=== PATIENT | female | born 1995 | race Hispanic/Latino ===

== ENCOUNTER 2019-02-25 19:51 | Emergency (ER) | payer OTHER ==
--- OUTSIDE RECORDS SUMMARY | 2019-02-25 19:53 | XMS REPORT ---
:1995 Author Organization [facility] Address [address] [place] [address] Dr. Abernathy [address] [place] [id number] Care Team Providers Name Role Phone Unavailable Unavailable Unavailable Problems This patient has no known problems. Allergies, Adverse Reactions, Alerts This patient has no known allergies or adverse reactions. Medications This patient has no known medications.
[2019-02-25 20:46] LABS: Absolute Lymphocytes (CBC) 1.3 K/uL (0.7-4.9); Absolute Monocytes 0.4 K/uL (0.1-1.3); Absolute Neutrophil 2.9 K/uL (1.8-8.0); Basophils % 0.5 % (0-1.3); Eosinophils % 0.8 % (0-4.4); Hematocrit 33.8 % (36.0-45.0); Lymphocytes % 27.8 % (15.3-44.8); MPV 8.5 fL (7.6-11.3); Monocytes % 8.2 % (3.3-12.3); RBC Red Blood Cell Count 4.66 M/uL (3.86-4.86)
[2019-02-25] MEDS ORDERED: NA CHLORIDE 0.9% 1,000 ML ONE (20:52)
[2019-02-25 20:54] LABS: ALT/SGPT 16 U/L (12-78); AST/SGOT 14 U/L (15-37); Albumin 3.3 g/dL (3.4-5.0); Alkaline Phosphatase 62 U/L (45-117); BUN Blood Urea Nitrogen 6 mg/dL (7-18); Bicarbonate 24 mmol/L (21-32); Bilirubin Direct < 0.1 mg/dL (0-0.2); Bilirubin Total 0.2 mg/dL (0.2-1.0); Glucose Level 83 mg/dL (74-106); Lipase 103 U/L (73-393); Potassium 3.5 mmol/L (3.5-5.1); Protein, Total 7.6 g/dL (6.4-8.2); Sodium Level 140 mmol/L (136-145)
[2019-02-25 21:07] LABS: Urine Bacteria 20-50 /HPF (<20); Urine RBC <5 /HPF (NONE SEEN)
[2019-02-25 21:08] LABS: Urine Culture Reflex Order REFLEXED; Urine Mucus LIGHT /HPF (NONE SEEN)
[2019-02-25 21:41] LABS: Platelet Estimate ADEQ; Urine White Blood Cell Casts OK
[2019-02-25 21:42] LABS: Blood Morphology Comment NOTED (NOT SEEN); Ovalocytes 1+
--- NOTE | 2019-02-25 22:01 | EDPHYS ---
Physician Documentation [facility] Name: Ignacia Rhodes Age: 23 yrs Sex: Female : 1995 Arrival Date: 02/25/2019 Time: 19:53 Bed 15 Private MD: ED Physician Sergio Hamilton HPI: 02/25 20:25 This 23 yrs old Female presents to ER via Ambulatory with complaints of Flank cp Pain - 15 Wks preg. 20:25 The patient presents with abdominal pain right lower quadrant. cp 20:25 Onset: The symptoms/episode began/occurred 3 day(s) ago. Associated signs and symptoms: cp Pertinent positives: nausea, vaginal discharge, vomiting, Pertinent negatives: diarrhea, dysuria, fever, vaginal bleeding. The symptoms are described as waxing/waning. Severity of pain: in the emergency department the pain is a 7 / 10. 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 - Social history:: Smoking status: Patient/guardian denies using tobacco, Patient/guardian denies using alcohol, street drugs. - Ebola Screening: : Patient negative for fever greater than or equal to 101.5 degrees Fahrenheit, and additional compatible Ebola Virus Disease symptoms Patient denies exposure to infectious person Patient denies travel to an Ebola-affected area in the 21 days before illness onset. ROS: 20:30 Constitutional: Negative for body aches, chills, fever, poor PO intake. cp 20:30 Eyes: Negative for injury, pain, redness, and discharge. cp 20:30 ENT: Negative for drainage from ear(s), ear pain, sore throat, difficulty swallowing, difficulty handling secretions. 20:30 Cardiovascular: Negative for chest pain, palpitations. 20:30 Respiratory: Negative for cough, shortness of breath, wheezing. 20:30 Abdomen/GI: Positive for abdominal pain, nausea, vomiting, of the right lower quadrant, Negative for diarrhea, constipation, anorexia. 20:30 Back: Negative for injury or acute deformity, decreased range of motion. 20:30 : Positive for urinary frequency, vaginal discharge, Negative for burning with urination, vaginal bleeding. 20:30 Skin: Negative for burn, rash. 20:30 Neuro: Negative for altered mental status, headache, weakness. 20:30 All other systems are negative. Exam: 20:35 Constitutional: The patient appears in no acute distress, alert, awake, comfortable, cp non-toxic, well developed, well nourished. 20:35 Head/Face: Normocephalic, atraumatic. cp 20:35 Eyes: Periorbital structures: appear normal, Conjunctiva: normal, no exudate, no injection, Sclera: no appreciated abnormality, Lids and lashes: appear normal, bilaterally. 20:35 ENT: External ear(s): are unremarkable, Nose: is normal, Mouth: Lips: moist, Oral mucosa: pink and intact, moist, Posterior pharynx: is normal, airway is patent, no erythema, no exudate. 20:35 Chest/axilla: Inspection: normal, Palpation: is normal, no crepitus, no tenderness. 20:35 Cardiovascular: Rate: normal, Rhythm: regular. 20:35 Respiratory: the patient does not display signs of respiratory distress, Respirations: normal, no use of accessory muscles, no retractions, no splinting, no tachypnea, labored breathing, is not present, Breath sounds: are clear throughout, no decreased breath sounds, no stridor, no wheezing. 20:35 Abdomen/GI: Inspection: gravid appearance, is noted, Bowel sounds: active, all quadrants, Palpation: soft, in all quadrants, mild abdominal tenderness, in the right lower quadrant, rebound tenderness, is not appreciated, involuntary guarding, is not appreciated. 20:35 Back: CVA tenderness, is absent. 20:35 Skin: cellulitis, is not appreciated, no rash present. 20:35 Special observations: complaints out of proportion to exam, no evidence of discomfort. Vital Signs: 20:05 BP 128 / 79; Pulse 89; Resp 16; Temp 98.7; Pulse Ox 100% ; Weight 61.23 kg; Height 5 rr5 ft. 4 in. (162.56 cm); Pain 7/10; 21:00 BP 110 / 75; Pulse 85; Resp 17; Pulse Ox 98% ; rr5 22:00 BP 129 / 86; Pulse 92; Resp 16; Pulse Ox 99% ; rr5 22:30 BP 121 / 85; Pulse 90; Resp 16; Pulse Ox 99% ; rr5 20:05 Body Mass Index 23.17 (61.23 kg, 162.56 cm) rr5 MDM: 20:04 Patient medically screened. cp 20:30 Differential diagnosis: nephrolithiasis, pyelonephritis, UTI, appendicitis, ovarian cp cyst, non-specific abdominal pain, PID, ovarian torsion. 22:00 Data reviewed: vital signs, nurses notes, lab test result(s), radiologic studies, cp ultrasound. 22:00 Counseling: I had a detailed discussion with the patient and/or guardian regarding: the cp historical points, exam findings, and any diagnostic results supporting the discharge/admit diagnosis, lab results, radiology results, the need for outpatient follow up, an OB/Gyne specialist, to return to the emergency department if symptoms worsen or persist or if there are any questions or concerns that arise at home. Response to treatment: the patient's symptoms have markedly improved after treatment, and as a result, I will discharge patient. Special discussion: Based on the patient's Hx, exam, and Dx evaluation, there is no indication for emergent surgery or inpatient Tx. It is understood by the patient/guardian that if the Sx's persist or worsen they need to return immediately for re-evaluation. 02/25 20:20 Order name: Basic Metabolic Panel; Complete Time: 21:04 02/25 21:05 Interpretation: Normal except: CL 108; BUN 6; CRE 0.47. 02/25 20:20 Order name: CBC with Diff; Complete Time: 21:53 02/25 21:04 Interpretation: Normal except: HGB 10.9; HCT 33.8; MCV 72.5; MCH 23.4; RDW 19.2. 02/25 20:20 Order name: Creatinine for Radiology; Complete Time: 21:04 02/25 21:54 Interpretation: Reviewed. 02/25 20:20 Order name: Hepatic Function; Complete Time: 21:04 02/25 21:05 Interpretation: Normal except: AST 14; ALB 3.3; GLOB 4.3; A/G 0.8. 02/25 20:20 Order name: Lipase; Complete Time: 21:04 cp 02/25 20:20 Order name: Urine Microscopic Only; Complete Time: 21:53 cp 02/25 21:54 Interpretation: Normal except: UBACT 20-50. cp 02/25 20:20 Order name: IV Saline Lock; Complete Time: 20:36 cp 02/25 20:48 Order name: CBC Smear Scan; Complete Time: 21:53 EDNJ 02/25 21:09 Order name: Urine Culture [facility] 02/25 21:12 Order name: Urine Dipstick--Ancillary (enter results) [facility] 02/25 21:13 Order name: Urine --Ancillary (enter results) [facility] 02/25 21:45 Order name: OB Limited [facility] 02/25 20:20 Order name: Labs collected and sent; Complete Time: 20:36 cp 02/25 20:20 Order name: Urine Dipstick-Ancillary (obtain specimen); Complete Time: 20:35 cp 02/25 21:55 Order name: PO challenge; Complete Time: 22:06 cp Administered Medications: 20:45 Drug: NS 0.9% 500 ml Route: IV; Rate: bolus; Site: right antecubital; rr5 22:00 Follow up: Response: No adverse reaction; IV Status: Completed infusion; IV Intake: rr5 500ml Disposition: 02/25/19 22:00 Discharged to Home. Impression: related conditions, unspecified, second trimester, Unspecified genitourinary tract infection in . - Condition is Stable. - Discharge Instructions: Abdominal Pain During , and Urinary Tract Infection. - Prescriptions for Macrobid 100 mg Oral Capsule - take 1 capsule by ORAL route every 12 hours for 7 days; 14 capsule. promethazine 25 mg Oral Tablet - take 1 tablet by ORAL route every 6 hours As needed; 20 tablet. - Medication Reconciliation Form, Thank You Letter, Antibiotic Education, Prescription Opioid Use form. - Follow up: Private Physician; When: 2 - 3 days; Reason: Recheck today's complaints. - Problem is new. - Symptoms have improved. Addendum: 02/27/2019 00:14 Co-signature as Attending Physician, Sergio valdovinos Signatures: Dispatcher [facility] Sergio Hamilton MD MD pkl Prem Ramirez PA PA cp Roque, Raymond, RN RN rr5 Corrections: (The following items were deleted from the chart) 02/25 21:45 20:25 Transvaginal Ob+US.USHA.SUMIT ordered. EDMS EDMS 22:52 22:00 02/25/2019 22:00 Discharged to Home. Impression: related conditions, rr5 unspecified, second trimester; Unspecified genitourinary tract infection in . Condition is Stable. Forms are Medication Reconciliation Form, Thank You Letter, Antibiotic Education, Prescription Opioid Use. Follow up: Private Physician; When: 2 - 3 days; Reason: Recheck today's complaints. Problem is new. Symptoms have improved. cp
--- NOTE | 2019-02-25 22:01 | ER ---
Nurse's Notes [facility] Name: Ignacia Rhodes Age: 23 yrs Sex: Female : 1995 Arrival Date: 02/25/2019 Time: 19:53 Bed 15 Private MD: Diagnosis: related conditions, unspecified, second trimester;Unspecified genitourinary tract infection in Presentation: 02/25 20:05 Presenting complaint: Patient states: started to have this sharp pain at my right lower rr5 abdomen 7/10 pain score, I'm nauseated and vomited once. having some whitish vaginal discharge. 20:05 Transition of care: patient was not received from another setting of care. Onset of rr5 symptoms was February 23, 2019. Risk Assessment: Do you want to hurt yourself or someone else? Patient reports no desire to harm self or others. Initial Sepsis Screen: Does the patient meet any 2 criteria? No. Patient's initial sepsis screen is negative. Does the patient have a suspected source of infection? No. Patient's initial sepsis screen is negative. Care prior to arrival: Medication(s) given: Tylenol. 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 - Social history:: Smoking status: Patient/guardian denies using tobacco, Patient/guardian denies using alcohol, street drugs. - Ebola Screening: : Patient negative for fever greater than or equal to 101.5 degrees Fahrenheit, and additional compatible Ebola Virus Disease symptoms Patient denies exposure to infectious person Patient denies travel to an Ebola-affected area in the 21 days before illness onset. Screenin:48 Abuse screen: Denies threats or abuse. Denies injuries from another. Nutritional rr5 screening: No deficits noted. Tuberculosis screening: No symptoms or risk factors identified. Fall Risk IV access (20 points). Total Aden Fall Scale indicates No Risk (0-24 pts). Assessment: 20:05 General: Appears in no apparent distress. comfortable, Behavior is calm, cooperative, rr5 appropriate for age. Pain: Complains of pain in right lower quadrant Pain does not radiate. Pain currently is 7 out of 10 on a pain scale. Quality of pain is described as sharp, Pain began gradually, Is intermittent. Neuro: Level of Consciousness is awake, alert, obeys commands, Oriented to person, place, time, situation, Appropriate for age. Cardiovascular: Capillary refill < 3 seconds Patient's skin is warm and dry. Respiratory: Airway is patent Respiratory effort is even, unlabored, Respiratory pattern is regular, symmetrical. GI: Abdomen is round Reports lower abdominal pain, nausea, vomiting. : Urine is clear, Reports discharge, from vagina that is white, 15 weeks . 20:05 EENT: No signs and/or symptoms were reported regarding the EENT system. Derm: Skin is rr5 intact, Skin temperature is warm. Musculoskeletal: Capillary refill < 3 seconds, Range of motion: intact in all extremities. 21:51 Reassessment: Patient appears in no apparent distress at this time. No changes from rr5 previously documented assessment. Patient is alert, oriented x 3, equal unlabored respirations, skin warm/dry/pink. awaiting for ultrasound result. no complaints made. Patient states symptoms have improved. 22:30 Reassessment: Patient appears in no apparent distress at this time. Patient is alert, rr5 oriented x 3, equal unlabored respirations, skin warm/dry/pink. discharge instruction given and explained without complaints made. Patient states feeling better. Patient states symptoms have improved. Vital Signs: 20:05 BP 128 / 79; Pulse 89; Resp 16; Temp 98.7; Pulse Ox 100% ; Weight 61.23 kg; Height 5 rr5 ft. 4 in. (162.56 cm); Pain 7/10; 21:00 BP 110 / 75; Pulse 85; Resp 17; Pulse Ox 98% ; rr5 22:00 BP 129 / 86; Pulse 92; Resp 16; Pulse Ox 99% ; rr5 22:30 BP 121 / 85; Pulse 90; Resp 16; Pulse Ox 99% ; rr5 20:05 Body Mass Index 23.17 (61.23 kg, 162.56 cm) rr5 ED Course: 19:53 Patient arrived in ED. am2 20:04 Prem Ramirez PA is PHCP. cp 20:04 Sergio Hamilton MD is Attending Physician. cp 20:05 Patient has correct armband on for positive identification. Bed in low position. Side rr5 rails up X2. Pulse ox on. NIBP on. 20:05 Arm band placed on. rr5 20:07 Noah Branham, RN is Primary Nurse. rr5 20:10 Triage completed. rr5 20:30 Inserted saline lock: 20 gauge in right antecubital area, using aseptic technique. jd3 Blood collected. 21:46 OB Limited In Process Unspecified. EDMS 22:40 No provider procedures requiring assistance completed. IV discontinued, intact, rr5 bleeding controlled, No redness/swelling at site. Pressure dressing applied. Administered Medications: 20:45 Drug: NS 0.9% 500 ml Route: IV; Rate: bolus; Site: right antecubital; rr5 22:00 Follow up: Response: No adverse reaction; IV Status: Completed infusion; IV Intake: rr5 500ml Intake: 22:00 IV: 500ml; Total: 500ml. rr5 Outcome: 22:00 Discharge ordered by MD. cp 22:40 Discharged to home ambulatory. rr5 22:40 Condition: stable 22:40 Discharge instructions given to patient, Instructed on discharge instructions, follow up and referral plans. medication usage, Demonstrated understanding of instructions, follow-up care, medications, Prescriptions given X 2. 22:52 Patient left the ED. rr5 Signatures: Dispatcher [employer] EDNC Prem Ramirez PA PA Shreya Marquez am2 Jae Enciso RN RN jNoah Ortiz, GLORIA RN rr5
[2019-02-25 23:09] VITALS: TEMP 98.7
[2019-02-25 23:12] VITALS: BP 129/86; O2SAT 99
[2019-02-26 01:10] LABS: Urine Specific Gravity 1.025 (1.005-1.030)
[2019-02-26 01:11] LABS: Urine Specific Gravity 1.025 (1.005-1.030)
[2019-02-26 01:12] LABS: Urine Blood NEGATIVE (NEG); Urine Glucose NEGATIVE (NEG); Urine Protein TRACE (NEG); Urine pH 7.5 (5.0-7.0)
--- NOTE | 2019-02-26 08:36 | RAD REPORT ---
EXAM DESCRIPTION: US - OB Limited - 02/25/2019 9:45 pm CLINICAL HISTORY: , pelvic pain Preliminary findings provided at the time of the study. COMPARISON: None. FINDINGS: A single gestation is identified. Heart rate normal. The intracranial contents and s pine are grossly normal. Anatomic assessment is limited at 15 weeks gestational age. Anatomy is as ex pected for this gestational age. measurements are as follows: BPD:3.18 Centimeters 16 weeks 0 days HC:12.33 Centimeters 16 weeks 1 day AC:9.95 Centimeters 16 weeks 0 days HL:1.79 Centimeters 15 weeks 1 day FL:1.93 Centimeters 15 weeks 5 days The estimated gestational age (EGA) is 15 weeks 6 days with an SHIV of 08/13/2019. ratios are n ormal or within acceptable limits. The placenta is grade 0, posterior fundal in location. No low-lyin g or placenta previa. The amniotic fluid volume is normal. No maternal adnexal abnormality. IMPRESSION: 1. Single gestation with an EGA of 15 weeks 6 days and an SHIV of the 08/13/2019. 2. Anatomy is as expected for 15 week age. ratios are normal or within acceptable limits. 3. Grade 0, posterior fundal placenta with no low-lying or placenta previa. 4. Amniotic fluid volume is normal.
== END 2019-02-25 22:52 | disposition home or self-care (01) ==
LOC: ER 19:51
DX: O23.92 Unspecified genitourinary tract infection in pregnancy, second trimester (principal); O99.012 Anemia complicating pregnancy, second trimester; Z3A.15 15 weeks gestation of pregnancy
CPT/HCPCS: 36415; 76815; 80048; 80076; 81003; 81015; 81025; 83690; 85025; 87086; 87088; 96360; 99284; J7030

== ENCOUNTER 2019-05-17 21:46 | Emergency (ER) | payer OTHER ==
--- OUTSIDE RECORDS SUMMARY | 2019-05-17 21:48 | XMS REPORT ---
:1995 [facility] Address [address] [place] [address] Dr. Abernathy [address] [place] [id number] Care Team Providers Name Role Phone Unavailable Unavailable Unavailable Problems This patient has no known problems. Allergies, Adverse Reactions, Alerts This patient has no known allergies or adverse reactions. Medications This patient has no known medications.
[2019-05-17] MEDS ORDERED: NA CHLORIDE 0.9% 1,000 ML ONE (23:45)
[2019-05-17 23:51] LABS: Absolute Lymphocytes (CBC) 0.5 K/uL (0.7-4.9); Hematocrit 28.9 % (36.0-45.0); Lymphocytes % 6.7 % (15.3-44.8); MPV 8.6 fL (7.6-11.3); Monocytes % 1.9 % (3.3-12.3); RBC Red Blood Cell Count 4.24 M/uL (3.86-4.86)
[2019-05-18 00:06] LABS: ALT/SGPT 14 U/L (12-78); AST/SGOT 18 U/L (15-37); Albumin 2.8 g/dL (3.4-5.0); Alkaline Phosphatase 97 U/L (45-117); BUN Blood Urea Nitrogen 6 mg/dL (7-18); Bicarbonate 22 mmol/L (21-32); Bilirubin Direct 0.1 mg/dL (0-0.2); Bilirubin Total 0.5 mg/dL (0.2-1.0); Glucose Level 95 mg/dL (74-106); Lipase 101 U/L (73-393); Potassium 3.2 mmol/L (3.5-5.1); Protein, Total 7.3 g/dL (6.4-8.2); Sodium Level 136 mmol/L (136-145)
--- NOTE | 2019-05-18 00:36 | ER ---
Nurse's Notes [facility] Name: Ignacia Rhodes Age: 24 yrs Sex: Female : 1995 Arrival Date: 05/17/2019 Time: 21:52 Bed 8 Private MD: Diagnosis: Vomiting;Diarrhea, unspecified; related conditions, unspecified, second trimester; related conditions, unspecified, third trimester;Urinary tract infection, site not specified;Anemia, unspecified Presentation: 05/17 21:55 Presenting complaint: Pt sent to [facility] for evaluation due to her being 27+ weeks . 23:05 Presenting complaint: Kathi CASTRO from [facility] called to state that pt was coming back to ER for evaluation. They examined her and she had no contractions and heart tones were 160. Pt is 27 weeks 1 day. 23:20 Presenting complaint: Patient states: that since this am she has been having abd pain fc (all over), nausea, vomiting and diarrhea. Goes to [facility] in [place] for her care but has not called them yet to notify them of how she is doing. Transition of care: patient was not received from another setting of care. Onset of symptoms was May 17, 2019. Risk Assessment: Do you want to hurt yourself or someone else? Patient reports no desire to harm self or others. Initial Sepsis Screen: Does the patient meet any 2 criteria? HR > 90 bpm. Yes Does the patient have a suspected source of infection? No. Patient's initial sepsis screen is negative. Care prior to arrival: None. 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 - Social history:: Smoking status: Patient/guardian denies using tobacco, Patient/guardian denies using alcohol, street drugs. - Ebola Screening: : Patient negative for fever greater than or equal to 101.5 degrees Fahrenheit, and additional compatible Ebola Virus Disease symptoms Patient denies exposure to infectious person Patient denies travel to an Ebola-affected area in the 21 days before illness onset. - Family history:: not pertinent. Screenin:20 Abuse screen: Denies threats or abuse. Nutritional screening: No deficits noted. fc Tuberculosis screening: No symptoms or risk factors identified. Fall Risk None identified. Assessment: 23:30 General: Appears in no apparent distress. Behavior is calm, cooperative. Pain: bb Complains of pain in abdomen. Neuro: Level of Consciousness is awake, alert, obeys commands, Oriented to person, place, time, situation. Cardiovascular: Heart tones S1 S2 present. Respiratory: Airway is patent Respiratory effort is even, unlabored, Respiratory pattern is regular, Breath sounds are clear bilaterally. GI: Abdomen is round Bowel sounds present X 4 quads. Abd is soft X 4 quads. Derm: Skin is pink, warm \T\ dry. Musculoskeletal: Circulation, motion, and sensation intact. 05/18 00:09 Reassessment: pt resting quietly, IV site intact, patent, with fluids infusing awaiting bb diagnostic results. 00:49 Reassessment: Patient is alert, oriented x 3, equal unlabored respirations, skin bb warm/dry/pink. pt awaiting antibiotic reaction time verbalized understanding of and agrees to plan of care discharge instructions given. Vital Signs: 05/17 23:20 BP 116 / 69; Pulse 92; Resp 18; Temp 98.8(O); Pulse Ox 100% on R/A; Weight 67.13 kg (R); Height 5 ft. 4 in. (162.56 cm) (R); Pain 8/10; 05/18 00:31 BP 106 / 64 Supine; Pulse 85; Pulse Ox 100% on R/A; oe 00:33 BP 111 / 70 Sitting; Pulse 93; Pulse Ox 100% on R/A; oe 00:35 BP 120 / 59 Standing; Pulse 93; Pulse Ox 100% on R/A; oe 00:48 Resp 16 S; Temp 98.3(O); Pulse Ox 98% on R/A; bb 05/17 23:20 Body Mass Index 25.40 (67.13 kg, 162.56 cm) ED Course: 05/17 21:52 Patient arrived in ED. es 23:20 Arm band placed on Patient placed in an exam room, on a stretcher. fc 23:20 Patient has correct armband on for positive identification. Placed in gown. Bed in low fc position. Call light in reach. Side rails up X2. Pulse ox on. NIBP on. 23:21 Prem Ty MD is Attending Physician. [facility] 23:28 Triage completed. 23:30 Initial lab(s) drawn, by sd, sent to lab. Urine collected: clean catch specimen. bb Inserted saline lock: 20 gauge in right antecubital area, using aseptic technique. Blood collected. 23:32 Naty Lindsay, RN is Primary Nurse. bb 05/18 00:49 No provider procedures requiring assistance completed. bb 01:00 IV discontinued, intact, bleeding controlled, No redness/swelling at site. Pressure bb dressing applied. Administered Medications: 05/17 23:33 Drug: NS 0.9% 1000 ml Route: IV; Rate: 1 bolus; Site: right antecubital; bb 05/18 00:30 Follow up: IV Status: Completed infusion; IV Intake: 1000ml bb 00:48 Drug: Potassium Effervescent Tablet 25 mEq Route: PO; bb 01:00 Follow up: Response: No adverse reaction bb 00:48 Drug: Rocephin - (cefTRIAXone) 1 grams Route: IVPB; Infused Over: 30 mins; Site: right bb antecubital; 00:53 Follow up: IV Status: Completed infusion; IV Intake: 10ml ; given per pharmacy protocol bb Intake: 00:30 IV: 1000ml; Total: 1000ml. bb 00:53 IV: 10ml; Total: 1010ml. bb Outcome: 00:34 Discharge ordered by . [facility] 00:49 Discharged to home ambulatory, with family. bb 00:49 Condition: stable 00:49 Discharge instructions given to patient, Instructed on discharge instructions, follow up and referral plans. medication usage, Demonstrated understanding of instructions, follow-up care, medications, Prescriptions given X 3. 01:02 Patient left the ED. bb Signatures: Prem Ty MD MD cha Salyer, Edna es Chretien, Felicia, RN RN Naty Lindsay RN RN Allen Prado Corrections: (The following items were deleted from the chart) 00:38 00:31 BP 106 / 64; Pulse 85bpm; Pulse Ox 100% RA; oe oe
--- NOTE | 2019-05-18 00:36 | EDPHYS ---
Physician Documentation [facility] Name: Ignacia Rhodes Age: 24 yrs Sex: Female : 1995 Arrival Date: 05/17/2019 Time: 21:52 Bed 8 Private MD: ED Physician Prem Ty HPI: 05/18 00:30 This 24 yrs old Female presents to ER via Wheelchair with complaints of jyoti Abdominal Pain. 00:30 The patient presents with abdominal pain. Onset: The symptoms/episode began/occurred 2 jyoti day(s) ago. The patient presents to the emergency department with nausea, vomiting, diarrhea. Onset: The symptoms/episode began/occurred 2 day(s) ago. Possible causes: unknown. The symptoms are aggravated by nothing. The symptoms are alleviated by nothing. Onset: The symptoms/episode began/occurred 2 day(s) ago. Associated signs and symptoms: The patient has no apparent associated signs or symptoms. Severity of symptoms: At their worst the symptoms were mild, in the emergency department the symptoms are unchanged. 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 - Social history:: Smoking status: Patient/guardian denies using tobacco, Patient/guardian denies using alcohol, street drugs. - Ebola Screening: : Patient negative for fever greater than or equal to 101.5 degrees Fahrenheit, and additional compatible Ebola Virus Disease symptoms Patient denies exposure to infectious person Patient denies travel to an Ebola-affected area in the 21 days before illness onset. - Family history:: not pertinent. ROS: 05/18 00:30 Constitutional: Negative for fever, chills, and weight loss, Eyes: Negative for injury, jyoti pain, redness, and discharge, ENT: Negative for injury, pain, and discharge, Neck: Negative for injury, pain, and swelling, Cardiovascular: Negative for chest pain, palpitations, and edema, Respiratory: Negative for shortness of breath, cough, wheezing, and pleuritic chest pain, Back: Negative for injury and pain, : Negative for injury, bleeding, discharge, and swelling, MS/Extremity: Negative for injury and deformity, Skin: Negative for injury, rash, and discoloration, Neuro: Negative for headache, weakness, numbness, tingling, and seizure, Psych: Negative for depression, anxiety, suicide ideation, homicidal ideation, and hallucinations, Allergy/Immunology: Negative for hives, rash, and allergies, Endocrine: Negative for neck swelling, polydipsia, polyuria, polyphagia, and marked weight changes, Hematologic/Lymphatic: Negative for swollen nodes, abnormal bleeding, and unusual bruising. Abdomen/GI: Positive for abdominal pain, nausea, vomiting, and diarrhea, nausea, vomiting, diarrhea, abdominal distension, of the right upper quadrant, left upper quadrant, right lower quadrant and left lower quadrant, no ctx, no lof, no vag bleeding. 00:30 Abdomen/GI: Positive for positive fm. jyoti Exam: 00:30 Constitutional: This is a well developed, well nourished patient who is awake, alert, jyoti and in no acute distress. Head/Face: Normocephalic, atraumatic. Eyes: Pupils equal round and reactive to light, extra-ocular motions intact. Lids and lashes normal. Conjunctiva and sclera are non-icteric and not injected. Cornea within normal limits. Periorbital areas with no swelling, redness, or edema. ENT: Nares patent. No nasal discharge, no septal abnormalities noted. Tympanic membranes are normal and external auditory canals are clear. Oropharynx with no redness, swelling, or masses, exudates, or evidence of obstruction, uvula midline. Mucous membranes moist. Neck: Trachea midline, no thyromegaly or masses palpated, and no cervical lymphadenopathy. Supple, full range of motion without nuchal rigidity, or vertebral point tenderness. No Meningismus. Chest/axilla: Normal chest wall appearance and motion. Nontender with no deformity. No lesions are appreciated. Cardiovascular: Regular rate and rhythm with a normal S1 and S2. No gallops, murmurs, or rubs. Normal PMI, no JVD. No pulse deficits. Respiratory: Lungs have equal breath sounds bilaterally, clear to auscultation and percussion. No rales, rhonchi or wheezes noted. No increased work of breathing, no retractions or nasal flaring. Back: No spinal tenderness. No costovertebral tenderness. Full range of motion. Female : Normal external genitalia. Skin: Warm, dry with normal turgor. Normal color with no rashes, no lesions, and no evidence of cellulitis. MS/ Extremity: Pulses equal, no cyanosis. Neurovascular intact. Full, normal range of motion. Neuro: Awake and alert, GCS 15, oriented to person, place, time, and situation. Cranial nerves II-XII grossly intact. Motor strength 5/5 in all extremities. Sensory grossly intact. Cerebellar exam normal. Normal gait. Psych: Awake, alert, with orientation to person, place and time. Behavior, mood, and affect are within normal limits. 00:30 Abdomen/GI: Inspection: gravid appearance, Bowel sounds: normal, Palpation: abdomen is soft and non-tender, Liver: no appreciated palpable abnormalities, Hernia: not appreciated. Vital Signs: 05/17 23:20 BP 116 / 69; Pulse 92; Resp 18; Temp 98.8(O); Pulse Ox 100% on R/A; Weight 67.13 kg fc (R); Height 5 ft. 4 in. (162.56 cm) (R); Pain 8/10; 05/18 00:31 BP 106 / 64 Supine; Pulse 85; Pulse Ox 100% on R/A; oe 00:33 BP 111 / 70 Sitting; Pulse 93; Pulse Ox 100% on R/A; oe 00:35 BP 120 / 59 Standing; Pulse 93; Pulse Ox 100% on R/A; oe 00:48 Resp 16 S; Temp 98.3(O); Pulse Ox 98% on R/A; bb 05/17 23:20 Body Mass Index 25.40 (67.13 kg, 162.56 cm) fc MDM: 05/17 23:21 Patient medically screened. [facility] 05/18 00:43 Data reviewed: vital signs, nurses notes, lab test result(s). [facility] 05/17 23:21 Order name: Basic Metabolic Panel [facility] 05/17 23:21 Order name: CBC with Diff [facility] 05/17 23:21 Order name: Creatinine for Radiology [facility] 05/17 23:21 Order name: Hepatic Function [facility] 05/17 23:21 Order name: Lipase [facility] 05/17 23:21 Order name: Fecal Leukocyte Stain [facility] 05/17 23:21 Order name: Stool Culture [facility] 05/17 23:24 Order name: Basic Metabolic Panel; Complete Time: 00:28 [facility] 05/17 23:24 Order name: CBC with Automated Diff [facility] 05/17 23:24 Order name: Creatinine (Radiology Only); Complete Time: 00:28 [facility] 05/17 23:24 Order name: Liver (Hepatic) Function; Complete Time: 00:28 [facility] 05/17 23:24 Order name: Lipase; Complete Time: 00:28 [facility] 05/17 23:57 Order name: Manual Differential [facility] 05/17 23:21 Order name: IV Saline Lock; Complete Time: 23:35 [facility] 05/17 23:21 Order name: Labs collected and sent; Complete Time: 23:35 [facility] 05/17 23:21 Order name: Urine Dipstick-Ancillary (obtain specimen); Complete Time: 23:36 [facility] 05/18 00:21 Order name: Urine Dipstick--Ancillary (enter results) ar5 05/18 00:27 Order name: Orthostatics; Complete Time: 00:57 [facility] Administered Medications: 05/17 23:33 Drug: NS 0.9% 1000 ml Route: IV; Rate: 1 bolus; Site: right antecubital; 05/18 00:30 Follow up: IV Status: Completed infusion; IV Intake: 1000ml 00:48 Drug: Potassium Effervescent Tablet 25 mEq Route: PO; 01:00 Follow up: Response: No adverse reaction 00:48 Drug: Rocephin - (cefTRIAXone) 1 grams Route: IVPB; Infused Over: 30 mins; Site: right bb antecubital; 00:53 Follow up: IV Status: Completed infusion; IV Intake: 10ml ; given per pharmacy protocol Disposition: 05/18/19 00:34 Discharged to Home. Impression: Vomiting, Diarrhea, unspecified, related conditions, unspecified, second trimester, related conditions, unspecified, third trimester, Urinary tract infection, site not specified, Anemia, unspecified. - Condition is Stable. - Discharge Instructions: Abdominal Pain During , Food Choices to Help Relieve Diarrhea, Adult, Diarrhea, Adult, Nausea and Vomiting, Adult, Urinary Tract Infection, Adult, Nausea and Vomiting, Adult, [id number]-Jcdo, Urinary Tract Infection, Adult, Lqut-en-Taht, Diarrhea, Adult, Mehe-ow-Gfox, Third Trimester of , Xllu-op-Stej, Abdominal Pain During , Jurz-yw-Irsp, Second Trimester of , Acjm-ps-Ajpi, Hypokalemia. - Prescriptions for Vitamin 27- 0.8 mg Oral Tablet - take 1 tablet by ORAL route once daily; 30 tablet. Macrobid 100 mg Oral Capsule - take 1 capsule by ORAL route every 12 hours for 5 days; 10 capsule. Zofran 4 mg Oral Tablet - take 1 tablet by ORAL route every 12 hours As needed; 10 tablet. - Medication Reconciliation Form, Thank You Letter, Antibiotic Education, Prescription Opioid Use form. - Follow up: Private Physician; When: 2 - 3 days; Reason: Recheck today's complaints, Continuance of care, Re-evaluation by your physician. - Problem is new. - Symptoms have improved. Signatures: Dispatcher [employer] EDVT Prem Ty MD MD cha Chretien, Felicia, RN RN fc Ballard, Brenda, RN RN bb Corrections: (The following items were deleted from the chart) 00:35 00:34 05/18/2019 00:34 Discharged to Home. Impression: Vomiting; Diarrhea, unspecified; jyoti related conditions, unspecified, second trimester; related conditions, unspecified, third trimester; Urinary tract infection, site not specified. Condition is Stable. Forms are Medication Reconciliation Form, Thank You Letter, Antibiotic Education, Prescription Opioid Use. Follow up: Private Physician; When: 2 - 3 days; Reason: Recheck today's complaints, Continuance of care, Re-evaluation by your physician. Problem is new. Symptoms have improved. jyoti 01:02 00:35 05/18/2019 00:34 Discharged to Home. Impression: Vomiting; Diarrhea, unspecified; bb related conditions, unspecified, second trimester; related conditions, unspecified, third trimester; Urinary tract infection, site not specified; Anemia, unspecified. Condition is Stable. Forms are Medication Reconciliation Form, Thank You Letter, Antibiotic Education, Prescription Opioid Use. Follow up: Private Physician; When: 2 - 3 days; Reason: Recheck today's complaints, Continuance of care, Re-evaluation by your physician. Problem is new. Symptoms have improved. jyoti
[2019-05-18] MEDS ORDERED: CEFTRIAXONE/SWI 1gm 1 GM/10 ML SYR ONE (00:57)
[2019-05-18] MEDS ORDERED: POTASSIUM 25 MEQ EFFERV TAB ONE (00:57)
[2019-05-18 01:00] LABS: Blood Morphology Comment NOTED (NOT SEEN); Hypochromasia 1+; Platelet Estimate ADEQ
[2019-05-18 01:09] LABS: Urine Blood NEGATIVE (NEG); Urine Glucose NEGATIVE (NEG); Urine Protein TRACE (NEG)
[2019-05-18 02:40] VITALS: BP 120/59
[2019-05-18 02:46] VITALS: TEMP 98.3; O2SAT 98
== END 2019-05-18 01:02 | disposition home or self-care (01) ==
LOC: ER 21:46
DX: O23.42 Unspecified infection of urinary tract in pregnancy, second trimester (principal); O99.012 Anemia complicating pregnancy, second trimester; R19.7 Diarrhea, unspecified; Z3A.27 27 weeks gestation of pregnancy
CPT/HCPCS: 36415; 80048; 80076; 81003; 83690; 85025; 96361; 96374; 99284; J0696; J7030

== ENCOUNTER 2024-04-11 10:46 | Emergency (ER) | payer SELFPAY ==
[2024-04-11 11:28] LABS: Absolute Basophils 0.1 K/uL (0-0.5); Absolute Eosinophils 0.1 K/uL (0-0.5); Absolute Lymphocytes (CBC) 1.4 K/uL (0.7-4.9); Absolute Monocytes 0.3 K/uL (0.1-1.3); Absolute Neutrophil 2.8 K/uL (1.8-8.0); Basophils % 1.1 % (0-1.3); Eosinophils % 1.9 % (0-4.4); Hematocrit 32.5 % (36.0-45.0); Hemoglobin 10.1 g/dL (12.0-15.0); Lymphocytes % 30.6 % (15.3-44.8); MCH 21.1 pg (27.0-35.0); MCHC 31.2 g/dL (32.0-36.0); MCV 67.6 fL (80-100); MPV 8.1 fL (7.6-11.3); Monocytes % 6.4 % (3.3-12.3); Platelets 474 thou/uL (152-406); Red Cell Distribution Width 17.9 % (12.1-15.2)
[2024-04-11 11:32] LABS: Specific Gravity 1.022 (1.005-1.030); Sqamous Epithelial <5 /HPF (None Seen); Urine Bacteria None Seen /HPF (<20); Urine Bilirubin NEGATIVE (Negative); Urine Blood 3+ (OVER) (Negative); Urine Clarity Extremely Turbid (Clear); Urine Color Light-Orange (Yellow); Urine Culture Reflex Order NOT NEEDED; Urine Glucose NEGATIVE (Negative); Urine Ketones NEGATIVE (Negative); Urine Microscopic Reflex YN ORDER UMIC; Urine Mucus 2+ /HPF (None Seen); Urine Nitrite NEGATIVE (Negative); Urine Protein TRACE (Negative); Urine RBC >50 /HPF (None Seen); Urine Urobilinogen Normal (Normal); Urine WBC None Seen /HPF (<5); Urine pH 5.5 (5.0-7.0)
[2024-04-11 11:43] LABS: Albumin 3.9 g/dL (3.4-5.0); Albumin/Globulin Ratio 0.8 (1.1-1.8); Anion Gap 7.5 mEq/L (5.0-15.0); Bilirubin Total 0.4 mg/dL (0.2-1.0); Globulin 4.6 g/dL (2.3-3.5); Potassium 3.5 mEq/L (3.5-5.1); Protein, Total 8.5 g/dL (6.4-8.2)
[2024-04-11 12:06] LABS: Blood Morphology Comment NOTED (NOT SEEN); Hypochromasia 1+; Microcytosis 1+; Platelet Estimate INCR; White Blood Cell Scan OK (OK)
--- NOTE | 2024-04-11 12:18 | RAD REPORT ---
EXAM DESCRIPTION: CT - Abdomen Pelvis W Contrast - 04/11/2024 12:00 pm CLINICAL HISTORY: Abdominal pain COMPARISON: none. TECHNIQUE: Computed axial tomography of the abdomen pelvis was obtained. 100 cc Isovue-300 was admin istered intravenously. Oral contrast was not requested which limits evaluation of bowel and appendix All CT scans are performed using dose optimization technique as appropriate and may include automated exposure control or mA/KV adjustment according to patient size. FINDINGS: Mild fatty infiltration of the liver. Cholecystectomy The Spleen, pancreas, adrenal and kidneys appear unremarkable. There is no evidence of diverticulitis. A normal appendix. Tiny umbilical hernia 2 centimeter irregularly-shaped left ovarian cyst likely has recently ruptured. No followup imaging r ecommended. No significant free fluid IMPRESSION: 2 centimeter irregularly-shaped left ovarian cyst likely has recently ruptured.. No sign ificant free fluid
--- NOTE | 2024-04-11 12:21 | RAD REPORT ---
EXAM DESCRIPTION: US - Pelvis Complete - 04/11/2024 12:00 pm CLINICAL HISTORY: Pelvic pain COMPARISON: CT abdomen pelvis April 11, 2024 FINDINGS: Uterus measures 7 x 4 x 5 centimeters. Endometrial stripe is not well seen as the bladder is poorly distended with urine. A fibroid is not visualized. Ovaries are normal in size and echotexture with blood flow. No adnexal mass No significant free fluid 2 centimeter irregularly-shaped left ovarian cyst is better seen on the CT scan same date. No follow- up image recommended IMPRESSION: 2 centimeter irregularly-shaped left ovarian cyst is better seen on the CT scan same tatiana e. Most likely has recently ruptured. No significant free fluid
--- NOTE | 2024-04-11 12:27 | EDPHYS ---
Physician Documentation [facility] Name: Ignacia Rhodes Age: 29 yrs Sex: Female : 1995 Arrival Date: 04/11/2024 Time: 10:46 Bed 6 Private MD: ED Physician Beka Tomas HPI: 04/11 11:06 This 29 yrs old Female presents to ER via Ambulatory with complaints of rn Abdominal Pain, Nausea/Vomiting. 11:06 The patient presents to the emergency department with nausea, vomiting, abdominal pain, rn of the right lower quadrant, described as sharp, stabbing. Onset: The symptoms/episode began/occurred 3 week(s) ago. The symptoms are aggravated by nothing. The symptoms are alleviated by nothing. Severity of symptoms: At their worst the symptoms were moderate in the emergency department the symptoms are unchanged. The patient has experienced similar episodes in the past. The patient has been recently seen by a physician:. Patient reports right lower quadrant abdominal pain for the last 3 weeks. Seen at outside emergency room several days ago, told had right-sided ovarian cyst but otherwise no other findings. Followed up with gynecology today and told could be appendicitis, directed to come to emergency room immediately. Patient denies fever or vomiting. Reports happening daily for 3 weeks.. 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 - Infectious Disease History:: Denies. - Social history:: Smoking status: Patient denies any tobacco usage or history of. - Family history:: not pertinent. - Hospitalizations: : No recent hospitalization is reported. ROS: 11:06 Constitutional: Negative for fever, chills, and weight loss, Cardiovascular: Negative rn for chest pain, palpitations, and edema, Respiratory: Negative for shortness of breath, cough, wheezing, and pleuritic chest pain, Abdomen/GI: + abd pain, + vomiting Back: Negative for injury and pain, : Negative for injury, bleeding, discharge, and swelling, MS/Extremity: Negative for injury and deformity, Skin: Negative for injury, rash, and discoloration, Neuro: Negative for headache, weakness, numbness, tingling, and seizure, Exam: 11:06 Constitutional: This is a well developed, well nourished patient who is awake, alert, rn and in no acute distress. Ambulatory to room without difficulty or assistance Cardiovascular: Regular rate and rhythm. No pulse deficits. Abdomen/GI: Soft, mild right lower quadrant tenderness without rebound or masses MS/ Extremity: Pulses equal, no cyanosis. Vital Signs: 10:59 BP 137 / 79; Pulse 93; Resp 16; Temp 99.5; Pulse Ox 100% on R/A; Weight 78.47 kg; iw Height 5 ft. 4 in. ; Pain 10/10; 12:20 Pulse 76; Resp 16 S; Pulse Ox 100% on R/A; kc6 13:18 BP 113 / 79; Pulse 74; Resp 14; Pulse Ox 99% ; ko1 10:59 Body Mass Index 29.70 (78.47 kg, 162.56 cm) iw 10:59 Pain Scale: Adult iw MDM: 10:51 Patient medically screened. rn 12:25 Differential diagnosis: Nonspecific abd pain, appendicitis, diverticulitis, Ruptured rn ovarian cyst. Data reviewed: vital signs, nurses notes, lab test result(s), radiologic studies, CT scan, ultrasound, and as a result, I will discharge patient. Counseling: I had a detailed discussion with the patient and/or guardian regarding the historical points, exam findings, and any diagnostic results supporting the discharge/admit diagnosis, lab results, radiology results, the need for outpatient follow up, to return to the emergency department if symptoms worsen or persist or if there are any questions or concerns that arise at home. Special discussion: Based on the patient's Hx, exam, and Dx evaluation, there is no indication for emergent surgery or inpatient Tx. It is understood by the patient/guardian that if the Sx's persist or worsen they need to return immediately for re-evaluation. I discussed with the patient/guardian in detail that at this point there is no indication for admission to the hospital. It is understood, however, that if the symptoms persist or worsen the patient needs to return immediately for re-evaluation. Based on the history and exam findings, there is no indication for further emergent testing or inpatient evaluation. I discussed with the patient/guardian the need to see the OB Gyne specialist for further evaluation of the symptoms. ED course: CT and ultrasound consistent with recently ruptured ovarian cyst which fits with symptoms and story. Will discharge home with gynecology follow-up. 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 I have personally reviewed all of the results, including but not limited to blood tests and imaging deemed necessary to safely discharge this patient at this time. I personally went over all the results with the patient and answered all questions. Patient will follow-up with PCP and or specialist as discussed. Return precautions given and understood.. 04/11 11:03 Order name: CBC with Diff; Complete Time: 12:12 rn 04/11 11:03 Order name: CMP; Complete Time: 12:12 rn 04/11 11:03 Order name: Lipase; Complete Time: 12:12 rn 04/11 11:03 Order name: Test, Urine; Complete Time: 12:12 rn 04/11 11:03 Order name: Urinalysis w/ reflexes; Complete Time: 12:12 rn 04/11 11:35 Order name: CBC Smear Scan; Complete Time: 12:12 EDAZ 04/11 11:03 Order name: CT Abd/Pelvis - IV Contrast Only; Complete Time: 12:22 rn 04/11 11:03 Order name: US Pelvis Complete; Complete Time: 12:22 rn 04/11 11:03 Order name: IV Saline Lock; Complete Time: 11:20 rn 04/11 11:03 Order name: Labs collected and sent; Complete Time: 11:20 rn Administered Medications: No medications were administered Disposition Summary: 04/11/24 12:27 Discharge Ordered Notes: Location: Home rn Problem: new rn Symptoms: have improved rn Condition: Stable rn Diagnosis - Other ovarian cyst, left side - with rupture rn Followup: rn - With: Yari Montemayor MD - When: As needed - Reason: Recheck today's complaints, Re-evaluation by your physician Discharge Instructions: - Discharge Summary Sheet rn - Ovarian Cyst rn Forms: - Medication Reconciliation Form rn - Antibiotic sports broadcasting internship - Prescription Opioid Use rn - Patient Portal Instructions rn - Leadership Thank You Letter rn Signatures: Dispatcher [employer] Kristin Hines RN RN iw Nieto, Roman, MD MD rn
--- NOTE | 2024-04-11 12:27 | ER ---
Nurse's Notes [facility] Name: Ignacia Rhodes Age: 29 yrs Sex: Female : 1995 Arrival Date: 04/11/2024 Time: 10:46 Bed 6 Private MD: Diagnosis: Other ovarian cyst, left side-with rupture Presentation: 04/11 10:58 Chief complaint: Patient states: RLQ pain since end of February, getting worse, has hx of iw ovarian cyst on left side, +n/v, no urine symptoms. Coronavirus screen: At this time, the client does not indicate any symptoms associated with coronavirus-19. Ebola Screen: Patient negative for fever greater than or equal to 101.5 degrees Fahrenheit, and additional compatible Ebola Virus Disease symptoms Patient denies exposure to infectious person. Patient denies travel to an Ebola-affected area in the 21 days before illness onset. No symptoms or risks identified at this time. Initial Sepsis Screen: Does the patient meet any 2 criteria? No. Patient's initial sepsis screen is negative. Does the patient have a suspected source of infection? No. Patient's initial sepsis screen is negative. Risk Assessment: Do you want to hurt yourself or someone else? Patient reports no desire to harm self or others. 10:58 Method Of Arrival: Ambulatory iw 10:58 Acuity: JORDY 3 iw 10:59 Onset of symptoms was February 2024. iw Triage Assessment: 11:00 General: Appears in no apparent distress. Behavior is calm, cooperative. Pain: iw Complains of pain in abdomen. GI: Abdomen is non-distended. 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 - Infectious Disease History:: Denies. - Social history:: Smoking status: Patient denies any tobacco usage or history of. - Family history:: not pertinent. - Hospitalizations: : No recent hospitalization is reported. Screenin:20 [facility] ED Fall Risk Assessment (Adult) History of falling in the last 3 months, kc6 including since admission No falls in past 3 months (0 pts) Confusion or Disorientation No (0 pts) Intoxicated or Sedated No (0 pts) Impaired Gait No (0 pts) Mobility Assist Device Used No (0 pt) Altered Elimination No (0 pt) Score/Fall Risk Level 0 - 2 = Low Risk. Abuse screen: Denies threats or abuse. Denies injuries from another. Nutritional screening: No deficits noted. Tuberculosis screening: No symptoms or risk factors identified. Assessment: 11:15 General: Appears in no apparent distress. uncomfortable, well groomed, well developed, kc6 Behavior is calm, cooperative, appropriate for age. Pain: Complains of pain in suprapubic area and right lower quadrant Pain currently is 9 out of 10 on a pain scale. Quality of pain is described as crampy, dull. Neuro: Level of Consciousness is awake, alert, obeys commands, Oriented to person, place, time, situation, Appropriate for age. Cardiovascular: Capillary refill < 3 seconds. Respiratory: Airway is patent Trachea midline Respiratory effort is even, unlabored, Respiratory pattern is regular, symmetrical. GI: Bowel sounds present X 4 quads. Abd is soft X 4 quads Abdomen is tender to palpation in suprapubic area and right lower quadrant Reports lower abdominal pain, nausea, vomiting, Patient currently denies diarrhea. : No signs and/or symptoms were reported regarding the genitourinary system. Urine is clear. EENT: No signs and/or symptoms were reported regarding the EENT system. Derm: No signs and/or symptoms reported regarding the dermatologic system. Skin is intact, is healthy with good turgor, Skin is pink, warm \T\ dry. Musculoskeletal: No signs and/or symptoms reported regarding the musculoskeletal system. Circulation, motion, and sensation intact. Capillary refill < 3 seconds, Range of motion: intact in all extremities. 12:15 Reassessment: Patient appears in no apparent distress at this time. No changes from kc6 previously documented assessment. Patient and/or family updated on plan of care and expected duration. Pain level reassessed. Patient is alert, oriented x 3, equal unlabored respirations, skin warm/dry/pink. Vital Signs: 10:59 BP 137 / 79; Pulse 93; Resp 16; Temp 99.5; Pulse Ox 100% on R/A; Weight 78.47 kg; iw Height 5 ft. 4 in. ; Pain 10/10; 12:20 Pulse 76; Resp 16 S; Pulse Ox 100% on R/A; kc6 13:18 BP 113 / 79; Pulse 74; Resp 14; Pulse Ox 99% ; ko1 10:59 Body Mass Index 29.70 (78.47 kg, 162.56 cm) iw 10:59 Pain Scale: Adult iw ED Course: 10:48 Patient arrived in ED. mr 10:51 Beka Tomas MD is Attending Physician. rn 10:59 Triage completed. iw 10:59 Marielena Morfin, RN is Primary Nurse. ko1 11:00 Arm band placed on. iw 11:20 Patient has correct armband on for positive identification. Bed in low position. Call kc6 light in reach. Side rails up X 1. Adult w/ patient. Client placed on continuous cardiac and pulse oximetry monitoring. NIBP monitoring applied. 11:20 Inserted saline lock: 20 gauge in right antecubital area, using aseptic technique. kc6 Blood collected. 11:54 US Pelvis Complete In Process Unspecified. EDMS 11:59 CT Abd/Pelvis - IV Contrast Only In Process Unspecified. EDMS 12:26 Yari Montemayor MD is Referral Physician. rn 13:18 Provided Education on: follow ups. ko1 13:18 No provider procedures requiring assistance completed. IV discontinued, intact, ko1 bleeding controlled, No redness/swelling at site. Pressure dressing applied. Administered Medications: No medications were administered Medication: 13:18 VIS not applicable for this client. ko1 Outcome: 12:27 Discharge ordered by . rn 13:18 Discharged to home ambulatory, with family, ko1 13:18 Condition: stable 13:18 Discharge instructions given to patient, family, Instructed on discharge instructions, follow up and referral plans. Demonstrated understanding of instructions, follow-up care, 13:19 Patient left the ED. ko1 Signatures: Dispatcher [employer] ED[facility] Stock[place]Violeta mejia, Reg Reg Kristin Simon, GLORIA CASTRO iw Beka Tomas MD MD rn Campbell, Kaitlyn, RN RN kc6 Marielena Morfin, GLORIA RN ko1
[2024-04-11 19:05] VITALS: BP 113/79; TEMP 99.5; O2SAT 99
== END 2024-04-11 13:19 | disposition home or self-care (01) ==
LOC: ER 10:46
DX: N83.292 Other ovarian cyst, left side (principal)
CPT/HCPCS: 36415; 74177; 76856; 80053; 81001; 81025; 83690; 85025; 99284; Q9967